=== PATIENT | male | born 1995 | race Caucasian/White ===

== ENCOUNTER 2018-02-12 13:25 | Emergency (ER) | payer OTHER ==
[2018-02-12 16:00] LABS: ADD MAN DIFF? NO
[2018-02-12 16:04] LABS: BASOPHIL # 0.1 10^3/ul (0.0-0.1); BASOPHILS % 0.5 % (0.0-2.0); EOSINOPHILS # 0.2 10^3/ul (0.0-0.5); EOSINOPHILS % 1.6 % (0.0-7.0); HEMATOCRIT 33.6 % (42.0-52.0); HEMOGLOBIN 11.1 g/dl (14.0-18.0); LYMPHOCYTES # 2.7 10^3/ul (0.8-2.9); LYMPHOCYTES % 19.9 % (15.0-51.0); MEAN CORPUSCULAR HEMOGLOBIN 29.5 pg (29.0-33.0); MEAN CORPUSCULAR VOLUME 89.4 fl (82.0-101.0); MONOCYTE # 0.9 10^3/ul (0.3-0.9); MONOCYTES % 6.5 % (0.0-11.0); NEUTROPHIL # 9.4 10^3/ul (1.6-7.5); NEUTROPHILS % 70.3 % (39.0-77.0); PLATELET COUNT 405 10^3/UL (140-415); RED BLOOD COUNT 3.76 10^6/ul (4.70-6.10); RED CELL DISTRIBUTION WIDTH 12.8 % (11.5-14.5)
[2018-02-12 16:04] LABS: WHITE BLOOD COUNT 13.3 10^3/ul (4.8-10.8)
[2018-02-12] MEDS: HYDROCODONE/APAP (5/325) TAB PO (16:04)
[2018-02-12] MEDS: SOD CHLORIDE 0.9% 1,000 ML IV (16:05)
[2018-02-12 16:30] LABS: ANION GAP 12 (8-16); BILIRUBIN,TOTAL 0.2 mg/dl (0.2-1.3)
[2018-02-12 16:32] LABS: ALANINE AMINOTRANSFERASE 52 IU/L (13-69); ALBUMIN 3.5 g/dl (3.3-4.9); ALKALINE PHOSPHATASE 100 IU/L (42-121); ASPARTATE AMINO TRANSFERASE 33 IU/L (15-46); BILIRUBIN,INDIRECT 0.2 mg/dl (0-1.1); BLOOD UREA NITROGEN 11 mg/dl (7-20); CALCIUM 8.7 mg/dl (8.4-10.2); CARBON DIOXIDE 27 mmol/L (21-31); CHLORIDE 105 mmol/L (97-110); CREATININE 0.79 mg/dl (0.61-1.24); GLUCOSE 114 mg/dl (70-220); LIPASE 40 U/L (23-300); POTASSIUM 4.3 mmol/L (3.5-5.1); SODIUM 140 mmol/L (135-144)
[2018-02-12 16:42] LABS: OCCULT BLOOD STOOL POSITIVE (NEGATIVE)
[2018-02-12] MEDS: FAMOTIDINE 20 MG INJ IV (17:12)
[2018-02-12] MEDS: AMPICILLIN/SULB 3 GM/NS (PMX) 100 ML IVPB (17:13)
== END 2018-02-12 18:01 | disposition home or self-care (01) ==
LOC: FTE 13:25
DX: K62.5 Hemorrhage of anus and rectum (principal); M54.2 Cervicalgia; R51 Headache; J34.89 Other specified disorders of nose and nasal sinuses
CPT/HCPCS: 36415; 70450; 70486; 72125; 80053; 82270; 83690; 85025; 96374; 96375; 99285-25